=== PATIENT | male | born 1955 | race Caucasian/White ===

== ENCOUNTER 2017-03-30 01:20 | Observation (INO) ==
[2017-03-30] MEDS ORDERED: Nitroglycerin 1 INCH/GM PACKET TP ONE (01:21)
--- NOTE | 2017-03-30 01:28 | Emergency Department Note ---
Disposition Clinical Impression: Chest pain Qualifiers: Chest pain type: precordial pain Qualified Code(s): R07.2 - Precordial pain Disposition: Admitted As Inpatient Condition: Good Referrals: NO,PCP [Primary Care Provider] - Chest Pain HPI - General Chief Complaint: ED Chest Pain Stated Complaint: chest pain Time Seen by Provider: 03/30/17 01:21 Source: patient - History of Present Illness HPI Narrative: Patient presents to the emergency department for evaluation of chest pain. He states that he woke with the pain approximately one hour ago. He states that it was dull and located in the left chest with radiation to left arm with associated diaphoresis and shortness of breath. No vomiting. He received 324 mg of aspirin in route. He took 3 sublingual nitroglycerin at home and currently is pain-free. He denies other radiation or migration of the pain. He denies lower extremity edema or calf discomfort. He reports a history of coronary artery disease and had PCI with 1 stent partially 5 years ago. He denies any cardiac evaluation or intervention since. - Related Data Home Medications Medication Instructions Recorded Confirmed Albuterol Sulfate [Proair Hfa] 1 puff IH BID 12/01/16 03/30/17 Aspirin 325 mg PO QAM 12/01/16 03/30/17 Budesonide/Formoterol 160/4.5 2 puff IH BIDR 12/01/16 03/30/17 [Symbicort 160/4.5] Lovastatin 40 mg PO HS 12/01/16 03/30/17 Allergies Allergy/AdvReac Type Severity Reaction Status Date / Time No Known Allergies Allergy Verified 12/01/16 19:49 Constitutional: Denies: fever, chills ENT ED: Denies: ear pain, throat pain Cardiovascular: Reports: as per HPI, chest pain. Denies: dyspnea on exertion Respiratory: Reports: cough (Patient reports chronic cough occasionally productive of yellow sputum. Denies hemoptysis. Patient reports chronic wheezing) Gastrointestinal: Denies: abdominal pain, vomiting, diarrhea Genitourinary: Denies: urgency, dysuria, frequency Musculoskeletal: Denies: back pain, neck pain Integumentary: Denies: rash Neurological: Denies: headache, weakness, numbness, paresthesias, confusion Endocrine: Denies: fatigue Hematological/Lymphatic: Denies: easy bleeding Chest Pain PMH - Past Medical History Medical history: Reports: coronary artery disease Psychiatric history: Reports: no psych history - Social History Smoking Status: Current every day smoker Alcohol use: Reports: rarely Drug use: Reports: none Physical Exam - General Limitations: no limitations General appearance: alert, in no apparent distress (Resting comfortably cooperative interactive pleasant) - Head Head exam: atraumatic, normocephalic - Eye Eye exam: Present: normal appearance. Absent: scleral icterus - ENT ENT exam: normal exam, normal oropharynx, mucous membranes moist - Neck Neck exam: Present: normal inspection, full ROM - Chest Chest inspection: Present: normal inspection. Absent: tenderness - Respiratory Respiratory exam: Present: wheezes (Mild end expiratory wheezes all lung segundo. Patient speaking in full sentences.). Absent: prolonged expiratory phase - Cardiovascular Cardiovascular exam: Present: regular rate, normal rhythm, normal heart sounds - Abdominal Exam Abdominal exam: Present: soft, Non-Tender, normal bowel sounds. Absent: tenderness, distention, guarding, rebound, rigidity - Extremities Exam Extremities exam: Present: normal inspection, full ROM, normal capillary refill. Absent: tenderness, pedal edema, calf tenderness - Expanded Lower Extremity Exam Neurovascular/Tendon exam: Present: normal capillary refill, normal 2-point discrimination. Absent: pulse deficit, motor deficit, sensory deficit - Back Exam Back exam: Present: normal inspection. Absent: tenderness - Neurological Exam Neurological exam: Present: alert, oriented X3 - Psychiatric Psychiatric exam: Present: normal affect, normal mood - Skin Skin exam: Present: warm, dry, intact, normal color Course Vital Signs Temperature 97.3 F L 03/30/17 01:22 Pulse Rate 76 03/30/17 01:22 Respiratory Rate 18 03/30/17 01:22 Blood Pressure 112/67 03/30/17 01:22 O2 Sat by Pulse Oximetry 97 03/30/17 01:22 Temperature 97.3 F L 03/30/17 01:25 Pulse Rate 74 03/30/17 02:36 Respiratory Rate 16 03/30/17 02:36 Blood Pressure 96/57 03/30/17 02:36 O2 Sat by Pulse Oximetry 99 03/30/17 02:36 Oxygen Delivery Oxygen Delivery Room Air Chest Pain - MDM Narrative Medical decision making narrative: Time 0240: Patient continues to rest comfortably and is asymptomatic. I discussed the case with Dr. Narinder. Patient will be admitted to the hospitalist service for serial cardiac enzymes and further evaluation. - Lab Data Lab results reviewed: Yes I reviewed the patient's lab results. Result diagrams: 03/30/17 01:32 03/30/17 01:32 Lab Results 03/30/17 03/30/17 03/30/17 Range/Units 01:32 01:32 01:32 WBC (4.3-11.1) K/mcL RBC (4.19-5.50) M/mcL Hgb (12.9-16.9) g/dL Hct (37.5-50.1) % MCV (83.0-100.0) fL MCH (28.0-33.3) pg MCHC (31.6-35.5) g/dL RDW (11.5-14.5) % Plt Count (140-400) K/mcL MPV (9.4-12.4) fL Immature Gran % (0-4) % Seg Neutrophils % % Lymphocytes % % Monocytes % % Eosinophils % % Basophils % % Neutrophils # (1.6-8.9) K/mcL Lymphocytes # (0.6-4.6) K/mcL Monocytes # (0.0-1.3) K/mcL Eosinophils # (0.0-0.6) K/mcL Basophils # (0.0-0.2) K/mcL PT 11.0 (9.4-12.1) Seconds INR 1.0 APTT 31.1 (26.0-36.0) Seconds Sodium (136-145) mEq/L Potassium (3.5-4.5) mEq/L Chloride (98-109) mEq/L Carbon Dioxide (19-29) mEq/L BUN (8-26) mg/dL Creatinine (0.72-1.25) mg/dL Est GFR ( Amer) (> 60) Est GFR (Non-Af Amer) (> 60) BUN/Creatinine Ratio (6-26) Glucose (70-99) mg/dL Calculated Osmolality (280-300) Calcium (8.6-10.8) mg/dL Total Bilirubin 0.5 (0.2-1.2) mg/dL Direct Bilirubin 0.1 (0.0-0.5) mg/dL Indirect Bilirubin 0.4 (0.0-1.2) mg/dL AST 12 (5-34) Units/L ALT 12 (0-55) Units/L Alkaline Phosphatase 83 (38-126) Units/L Troponin I (0-0.03) ng/mL Serum Total Protein 6.8 (6.0-8.3) g/dL Albumin 3.8 (3.5-5.0) g/dL Globulin 3.0 (2.4-3.5) g/dL Albumin/Globulin Ratio 1.3 (1.1-2.2) Lipase 61 (8-78) Units/L 03/30/17 03/30/17 03/30/17 Range/Units 01:32 01:32 01:32 WBC 8.0 (4.3-11.1) K/mcL RBC 5.11 (4.19-5.50) M/mcL Hgb 16.0 (12.9-16.9) g/dL Hct 44.3 (37.5-50.1) % MCV 86.7 (83.0-100.0) fL MCH 31.3 (28.0-33.3) pg MCHC 36.1 H (31.6-35.5) g/dL RDW 11.9 (11.5-14.5) % Plt Count 185 (140-400) K/mcL MPV 10.9 (9.4-12.4) fL Immature Gran % 0.3 (0-4) % Seg Neutrophils % 57.9 % Lymphocytes % 28.8 % Monocytes % 7.8 % Eosinophils % 4.6 % Basophils % 0.6 % Neutrophils # 4.6 (1.6-8.9) K/mcL Lymphocytes # 2.3 (0.6-4.6) K/mcL Monocytes # 0.6 (0.0-1.3) K/mcL Eosinophils # 0.4 (0.0-0.6) K/mcL Basophils # 0.1 (0.0-0.2) K/mcL PT (9.4-12.1) Seconds INR APTT (26.0-36.0) Seconds Sodium 141 (136-145) mEq/L Potassium 4.4 (3.5-4.5) mEq/L Chloride 102 (98-109) mEq/L Carbon Dioxide 28 (19-29) mEq/L BUN 12 (8-26) mg/dL Creatinine 0.88 (0.72-1.25) mg/dL Est GFR ( Amer) > 60 (> 60) Est GFR (Non-Af Amer) > 60 (> 60) BUN/Creatinine Ratio 14 (6-26) Glucose 104 H (70-99) mg/dL Calculated Osmolality 292 (280-300) Calcium 9.1 (8.6-10.8) mg/dL Total Bilirubin (0.2-1.2) mg/dL Direct Bilirubin (0.0-0.5) mg/dL Indirect Bilirubin (0.0-1.2) mg/dL AST (5-34) Units/L ALT (0-55) Units/L Alkaline Phosphatase (38-126) Units/L Troponin I 0.01 (0-0.03) ng/mL Serum Total Protein (6.0-8.3) g/dL Albumin (3.5-5.0) g/dL Globulin (2.4-3.5) g/dL Albumin/Globulin Ratio (1.1-2.2) Lipase (8-78) Units/L ITS Impressions Chest X-Ray 03/30/17 01:21 IMPRESSION: No acute disease. D/ / Lam Guillen MD / Lam Guillen MD Interpreting Provider: Lam Guillen MD - Radiology Data Radiology results reviewed: Yes I reviewed the patient's radiology results. - EKG Data EKG attestation: Yes I reviewed and interpreted this EKG. EKG shows normal: sinus rhythm (EKG is normal sinus rhythm with a rate of 82. No acute ST segment or T-wave changes.)
[2017-03-30 01:39] LABS: Basophils # 0.1 K/mcL (0.0-0.2); Basophils % 0.6 %; Eosinophils # 0.4 K/mcL (0.0-0.6); Eosinophils % 4.6 %; Hematocrit 44.3 % (37.5-50.1); Immature Granulocytes % 0.3 % (0-4); Lymphocytes # 2.3 K/mcL (0.6-4.6); Lymphocytes % 28.8 %; Mean Corpuscular HGB Conc 36.1 g/dL (31.6-35.5); Mean Corpuscular Hemoglobin 31.3 pg (28.0-33.3); Mean Corpuscular Volume 86.7 fL (83.0-100.0); Mean Platelet Volume 10.9 fL (9.4-12.4); Monocytes # 0.6 K/mcL (0.0-1.3); Monocytes % 7.8 %; Neutrophils # 4.6 K/mcL (1.6-8.9); Platelet Count 185 K/mcL (140-400); Red Blood Count 5.11 M/mcL (4.19-5.50); Red Cell Distribution Width 11.9 % (11.5-14.5); Segmented Neutrophils % 57.9 %
[2017-03-30 01:47] LABS: Activated Partial Thrombo Time 31.1 Seconds (26.0-36.0)
[2017-03-30 01:56] LABS: Albumin 3.8 g/dL (3.5-5.0); Albumin/Globulin Ratio 1.3 (1.1-2.2); BUN/Creatinine Ratio 14 (6-26); Bilirubin,Direct 0.1 mg/dL (0.0-0.5); Bilirubin,Indirect 0.4 mg/dL (0.0-1.2); Bilirubin,Total 0.5 mg/dL (0.2-1.2); Blood Urea Nitrogen 12 mg/dL (8-26); Calcium 9.1 mg/dL (8.6-10.8); Carbon Dioxide 28 mEq/L (19-29); Chloride 102 mEq/L (98-109); Glucose 104 mg/dL (70-99); Osmolality,Calculated 292 (280-300); Potassium 4.4 mEq/L (3.5-4.5); Sodium 141 mEq/L (136-145); Total Protein 6.8 g/dL (6.0-8.3); eGFR For African Americans > 60 (> 60); eGFR For Non-African Americans > 60 (> 60)
[2017-03-30] MEDS ORDERED: Naloxone 0.4 MG/ML INJ IVP PRN (02:44)
[2017-03-30 06:45] LABS: Chol/HDL Ratio 2.6 (0-4.9); Magnesium 2.3 mg/dL (1.6-2.6); Phosphorous 3.2 mg/dL (2.3-4.7)
[2017-03-30 10:42] VITALS: BP 107/70
[2017-03-30] MEDS ORDERED: Acetaminophen 325 MG TABLET PO ONE (12:03)
--- NOTE | 2017-03-30 12:37 | Electrocardiograph Report ---
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
[2017-03-30] MEDS ORDERED: Nicotine 21 MG PATCH.TD24 TD SCH (13:00)
--- NOTE | 2017-03-30 14:54 | Internal Med History&Physical ---
Date of Encounter: 03/30/17 Time of Encounter: 14:25 Assessment and Plan (1) Chest pain Current visit: Yes Status: Acute Doubt myocardial ischemia from history. Repeat cardiac enzymes were ordered through emergency room. Qualifiers: Chest pain type: unspecified Qualified Code(s): R07.9 - Chest pain, unspecified Internal Medicine - H&P: HPI Chief complaint: Chest pain Admitted From: Home Plans for Post Hospital Care: Home History of present illness: Mr. Bhagat is a 61 year old male who came to emergency room stating he was awakened with discomfort in his left chest. He describes it as a heaviness that seemed to radiate to his left shoulder. He took 3 nitroglycerin pills with partial relief but his had already called the squad. He was brought to ER and evaluated and admitted to [facility] floor for ongoing care needs. He states he is pain-free at this time. He thinks he had previous similar discomfort approximately 2010 with an PR. He had a heart catheter immediately after the PR with a single stent placed. He has not had a follow-up heart catheter. His last EST was approximately in 2013 it did not require further intervention. He has used 2 nitroglycerin pills in the last 6 months prior to this morning's episode. He denies a diagnosis of heart failure DVT or pulmonary embolus. He does not get angina or anginal equivalents predictably with routine activities. Past Med Surg Social Fam HX - Past Medical History Medical history: coronary artery disease Psychiatric history: no psych history - Social History Smoking Status: Current every day smoker Smokeless Tobacco Status: No Alcohol use: rarely Drug use: none Internal Medicine - H&P: Meds Albuterol Sulfate [Proair Hfa] 1 puff IH BID 12/01/16 [History] Aspirin 325 mg PO QAM 12/01/16 [History] Budesonide/Formoterol 160/4.5 [Symbicort 160/4.5] 2 puff IH BIDR 12/01/16 [ History] Lovastatin 40 mg PO HS 12/01/16 [History] Allergies No Known Allergies Allergy (Verified 12/01/16 19:49) All Systems PM: A 10-system review of systems was performed and is negative for pertinent findings except as documented above in the HPI. Review of systems: Gen.: He states his weight has been stable past few months Cardiovascular: As per history of present illness Respiratory: He smoked since age 6 up to 3 packs per day. He has a diagnosis of COPD and has oxygen at home. He has been diagnosed with MADISYN GI: Denies disorders of his liver gallbladder or exocrine pancreas : He denies hematuria dysuria or kidney stones Neurologic: He denies large distribution strokes or seizures Endocrine: He has hyperlipidemia but denies diabetes or thyroid disease Hematology/oncology: Denies blood disorders cancers or anemia Psychiatric: He has depression but denies anxiety or other mental health issues Musculoskeletal: He has had 2 low back surgeries and neck surgeries. He has chronic pain in his back and neck. He denies gout. - Constitutional Vitals: Temp Pulse Resp BP Pulse Ox 98.3 F 86 97 107/70 96 03/30/17 10:40 03/30/17 10:40 03/30/17 10:40 03/30/17 10:40 03/30/17 06:29 Exam: Gen.: He is a well-developed well-nourished male who appears in no acute distress HEENT: Head is atraumatic and normocephalic. Eyes: EOMI. There is no scleral icterus. Mouth: Mucosa is moist. Neck: Supple and nontender. There is no thyromegaly or adenopathy noted. Heart: Regular without murmurs gallops or ectopics Lungs: No wheezes crackles or egophony are heard Abdomen: Soft and nontender. No masses or guarding are noted. Chest: He is nontender in his chest wall to palpation Extremities: There is no cyanosis edema or clubbing noted. Dorsalis pedis and posttibial pulses are 1-2 over 2 bilaterally. He has hair present on his toes. Neurologic: Mental status: He is talkative and a good historian. Cranial nerves : Smile is symmetric. Forehead wrinkles bilaterally. Tongue protrudes midline. EOMI. Motor: There is no pronator drift. Cerebellar: Finger to nose is intact bilaterally. Skin: Warm and dry Internal Med - H&P Results - Labs CBC & Chem 7: 03/30/17 01:32 03/30/17 01:32 Labs: Cardiac Enzymes 03/30/17 03/30/17 Range/Units 05:58 11:53 Troponin I 0.00 0.00 (0-0.03) ng/mL
--- NOTE | 2017-03-30 15:06 | Discharge Summary ---
Date of Encounter: 03/30/17 Time of Encounter: 14:25 - Discharge Diagnosis (1) Chest pain Priority: Primary Status: Resolved Qualifiers: Chest pain type: unspecified Qualified Code(s): R07.9 - Chest pain, unspecified - Discharge Medications Prescriptions: Nitroglycerin [Nitrostat] 0.4 mg SL Q5M #1 vial Home Medications: Albuterol Sulfate [Proair Hfa] 1 puff IH BID 12/01/16 [History] Aspirin 325 mg PO QAM 12/01/16 [History] Budesonide/Formoterol 160/4.5 [Symbicort 160/4.5] 2 puff IH BIDR 12/01/16 [ History] Lovastatin 40 mg PO HS 12/01/16 [History] Nitroglycerin [Nitrostat] 0.4 mg SL Q5M #1 vial 03/30/17 [Rx] Allergies/Adverse Reactions: Allergies No Known Allergies Allergy (Verified 12/01/16 19:49) Date of admission: 03/30/17 03:01 Primary care physician: PCP NO - Patient Status Disposition: Home, Self-Care Condition: Good Functional capacity at discharge: independent ambulation Overall status at discharge: patient is progressing back to baseline - Discharge Instructions Follow Up With: Carole Robert CNP [Advanced Practice Nurse] - 1 week Forms: ED Satisfaction Letter - Diet and Activity Activity: resume usual activities as tolerated Diet: advance to your usual diet Hospital course: Mr. Bhagat is a 61 year old male who came to emergency room stating he was awakened with discomfort in his left chest. He describes it as a heaviness that seemed to radiate to his left shoulder. He took 3 nitroglycerin pills with partial relief but his had already called the squad. He was brought to ER and evaluated and admitted to [facility] for ongoing care needs. Initial orders were written by the emergency room physician. I saw him afternoon of March 30 and performed a history and physical and discharge. Repeat cardiac enzymes showed no evidence of myocardial damage. When I saw him I did not think the pain was likely to be of myocardial ischemic origin. Etiology of the pain was not determined with certainty. I recommended he continue his present medication regiment at this time. He has not established with a PCP since moving from [place] 6 months ago. He wished to follow up at [facility] in [place]. He will be seen there within the next week. I gave him a prescription for new bottle of Nitrostat. I encouraged him to discontinue smoking.. - Time Spent with Patient Total time spent providing and/or coordinating discharge services: - Constitutional Vitals: Temp Pulse Resp BP Pulse Ox 98.3 F 86 97 107/70 96 03/30/17 10:40 03/30/17 10:40 03/30/17 10:40 03/30/17 10:40 03/30/17 06:29
== END 2017-03-30 15:45 | disposition home or self-care (01) ==
LOC: EMEROOPIK 01:20 → INPPIK 01:20
PROVIDERS: ADMIT Internal Medicine; ATTEND Internal Medicine